=== PATIENT | male | born 1985 | race Caucasian/White ===

== ENCOUNTER 2018-09-13 16:24 | Outpatient (REF) | payer MEDICAID, SELFPAY ==
[2018-09-13 21:45] LABS: Abs Immature Grans 0.03 k/cumm (0.0-0.09); Absolute Basophil Count 0.06 k/cumm (0.0-0.2); Basophils % 0.4; Eosinophils % 0.9; HCT 46.1 % (40.0-50.0); HGB 15.8 g/dL (13.5-17.5); Immature Grans % 0.2; Mean Corp. HGB Concentration 34.3 g/dL (32.0-36.0); Mean Corpuscular Hemoglobin 31.5 pg (27.0-33.0); Mean Corpuscular Volume 91.8 fL (80-95); Mean Platelet Volume 9.8 fL (8.0-11.0); Monocytes % 9.4; Neutrophils % 74.1; Platelet Count 267 x1000/uL (130-400); RBC 5.02 m/cumm (4.50-6.00); RBC Distribution Width 12.4 % (11.8-14.1)
[2018-09-13 21:56] LABS: Absolute Eosinophil Count 0.13 k/cumm (0.0-0.7); Absolute Monocyte Count 1.32 k/cumm (0.11-0.7); Absolute Neutrophil Count 10.37 k/cumm (1.2-6.7)
[2018-09-13 22:20] LABS: ALT 17 U/L (12-78); AST 18 U/L (15-37); Alkaline Phosphatase 62 U/L (46-116); Anion Gap 7.7 mmol/L (3-11); BUN 11 mg/dL (7-18); Bilirubin, Total 0.4 mg/dL (0.2-1.0); CO2 31.3 mmol/L (21.0-32.0); CREATININE 0.94 mg/dL (0.70-1.30); Calcium 9.5 mg/dL (8.5-10.1); Chloride 102 mmol/L (98-107); Glucose 95 mg/dL (70-100); Potassium 3.7 mmol/L (3.5-5.1); Sodium 141 mmol/L (136-145); Total Protein 7.5 g/dL (6.4-8.2); Vitamin B12 473 pg/mL (193-986)
== END 2018-09-13 16:44 ==
LOC: NCHCN 16:24
PROVIDERS: PCP Nurse Practitioner Family; Visit Provider Nurse Practitioner Family
DX: B19.20 Unspecified viral hepatitis C without hepatic coma (principal); F10.10 Alcohol abuse, uncomplicated; F39 Unspecified mood [affective] disorder; F41.1 Generalized anxiety disorder; G31.84 Mild cognitive impairment of uncertain or unknown etiology; F32.9 Major depressive disorder, single episode, unspecified
CPT/HCPCS: 80053; 86803; 82607; 85025

== ENCOUNTER 2020-04-18 15:48 | Outpatient (REF) | payer MEDICAID, SELFPAY ==
[2020-04-18 22:55] LABS: Abs Immature Grans 0.05 10^3/uL (0.0-0.06); Absolute Eosinophil Count 0.15 10^3/uL (0.0-0.7); Absolute Lymphocyte Count 2.47 10^3/uL (1.2-3.4); Basophils % 0.6; Eosinophils % 1.2; HCT 46.6 % (40.0-50.0); HGB 16.2 g/dL (13.5-17.5); Immature Grans % 0.4; Lymphocytes % 19.7; MCH 32.4 pg (27.0-33.0); MCHC 34.8 % (32.0-36.0); MCV 93.2 fL (80-95); MPV 9.5 fL (8.0-11.0); Neutrophils % 70.1; Nucleated RBC 0 %; Platelet Count 351 10^3/uL (130-400); RDW 11.8 % (11.8-14.1); RDW-SD 40.4 fL; WBC 12.55 10^3/uL (4.4-10.8)
[2020-04-18 22:56] LABS: Absolute Basophil Count 0.08 10^3/uL (0.0-0.2)
[2020-04-18 23:19] LABS: VALPROIC ACID < 3 ug/mL (50-100)
[2020-04-18 23:26] LABS: ALT 15 U/L (16-63); AST 20 U/L (15-37); Albumin 4.7 g/dL (3.4-5.0); Alkaline Phosphatase 55 U/L (46-116); BUN 10 mg/dL (7-18); Bilirubin, Total 0.6 mg/dL (0.2-1.0); CREATININE 0.87 mg/dL (0.70-1.30); Calcium 9.6 mg/dL (8.5-10.1); Calculated LDL 76 mg/dL (<100); Chloride 103 mmol/L (98-107); Cholesterol 177 mg/dL (<200); Glucose 93 mg/dL (74-106); HDL Cholesterol 94 mg/dL (40-60); Potassium 4.4 mmol/L (3.5-5.1); Sodium 141 mmol/L (136-145); TSH 0.84 uIU/mL (0.36-3.74); Total Protein 8.7 g/dL (6.4-8.2); Triglyceride 38 mg/dL (<150)
== END 2020-04-18 16:08 ==
LOC: NCHCN 15:48
PROVIDERS: PCP Registered Nurse; Visit Provider Nurse Practitioner Psychiatric/Mental Health
DX: F31.81 Bipolar II disorder (principal); Z51.81 Encounter for therapeutic drug level monitoring; Z79.899 Other long term (current) drug therapy; F42.2 Mixed obsessional thoughts and acts
CPT/HCPCS: 80053; 80061; 80164; 84443; 85025

== ENCOUNTER 2021-07-22 22:15 | Outpatient (REF) | payer MEDICAID, SELFPAY ==
[2021-07-22 21:57] LABS: Abs Immature Grans 0.04 10^3/uL (0.0-0.06); Absolute Basophil Count 0.07 10^3/uL (0.0-0.2); Absolute Eosinophil Count 0.17 10^3/uL (0.0-0.7); Absolute Neutrophil Count 9.79 10^3/uL (1.2-6.7); Basophils % 0.5; Eosinophils % 1.2; HCT 48.6 % (40.0-50.0); HGB 16.2 g/dL (13.5-17.5); Immature Grans % 0.3; Lymphocytes % 19.4; MCH 31.6 pg (27.0-33.0); MCHC 33.3 % (32.0-36.0); MCV 94.7 fL (80-95); MPV 9.9 fL (8.0-11.0); Monocytes % 8.1; Neutrophils % 70.5; Nucleated RBC 0 %; Platelet Count 360 10^3/uL (130-400); RBC 5.13 10^6/uL (4.36-5.78); RDW 12.5 % (11.8-14.1); RDW-SD 43.9 fL; WBC 13.89 10^3/uL (4.4-10.8)
[2021-07-22 22:00] LABS: Absolute Lymphocyte Count 2.69 10^3/uL (1.2-3.4); Absolute Monocyte Count 1.13 10^3/uL (0.1-0.8)
[2021-07-22 22:20] LABS: ALT 17 U/L (16-63); AST 18 U/L (15-37); Alkaline Phosphatase 57 U/L (46-116); Anion Gap 9.5 mmol/L (3-11); BUN 6 mg/dL (7-18); Bilirubin, Total 0.4 mg/dL (0.2-1.0); CO2 28.5 mmol/L (21.0-32.0); CREATININE 0.9 mg/dL (0.70-1.30); Chloride 104 mmol/L (98-107); Glucose 139 mg/dL (74-106); Potassium 4.6 mmol/L (3.5-5.1); Sodium 142 mmol/L (136-145); Total Protein 7.8 g/dL (6.4-8.2)
[2021-07-22 22:23] LABS: VALPROIC ACID 69.4 ug/mL
[2021-07-23 18:42] LABS: Hemoglobin A1C 4.9 % (<5.7)
== END 2021-07-22 22:16 | disposition home or self-care (01) ==
LOC: NCHCN 22:15
PROVIDERS: PCP Registered Nurse; Visit Provider Registered Nurse
DX: R73.9 Hyperglycemia, unspecified (principal); F31.81 Bipolar II disorder; F39 Unspecified mood [affective] disorder
CPT/HCPCS: 80053; 80164; 83036; 85025

== ENCOUNTER 2021-12-16 16:13 | Outpatient (REF) | payer MEDICAID, SELFPAY ==
[2021-12-16 21:43] LABS: Abs Immature Grans 0.06 10^3/uL (0.0-0.06); Absolute Basophil Count 0.09 10^3/uL (0.0-0.2); Absolute Eosinophil Count 0.06 10^3/uL (0.0-0.7); Absolute Lymphocyte Count 1.55 10^3/uL (1.2-3.4); Absolute Monocyte Count 1.25 10^3/uL (0.1-0.8); Basophils % 0.7; Eosinophils % 0.5; HCT 44.4 % (40.0-50.0); HGB 15.4 g/dL (13.5-17.5); Immature Grans % 0.5; Lymphocytes % 12.1; MCH 32.9 pg (27.0-33.0); MCHC 34.7 % (32.0-36.0); MCV 95 fL (80-95); MPV 9.4 fL (8.0-11.0); Monocytes % 9.8; Neutrophils % 76.4; Platelet Count 324 10^3/uL (130-400); RBC 4.68 10^6/uL (4.36-5.78); RDW-SD 45.7 fL
[2021-12-16 21:44] LABS: Absolute Neutrophil Count 9.78 10^3/uL (1.2-6.7)
[2021-12-16 21:51] LABS: ESR 5 mm/hr (0-15)
[2021-12-16 22:23] LABS: ALT 43 U/L (16-63); AST 34 U/L (15-37); Albumin 4.2 g/dL (3.4-5.0); Alkaline Phosphatase 53 U/L (46-116); Anion Gap 11.4 mmol/L (3-11); BUN 8 mg/dL (7-18); Bilirubin, Total 0.6 mg/dL (0.2-1.0); C-Reactive Protein 0.13 mg/dL (0.0-0.3); CO2 25.6 mmol/L (21.0-32.0); CREATININE 0.7 mg/dL (0.70-1.30); Calcium 9.3 mg/dL (8.5-10.1); Chloride 102 mmol/L (98-107); Glucose 79 mg/dL (74-106); Potassium 4.5 mmol/L (3.5-5.1); Sodium 139 mmol/L (136-145); TSH (W/Ref FT4) 1.28 uIU/mL (0.36-3.74); Total Protein 7.6 g/dL (6.4-8.2)
[2021-12-16 23:03] LABS: Calculated LDL 54 mg/dL (<100); Cholesterol 194 mg/dL (<200); HDL Cholesterol 135 mg/dL (40-60); Triglyceride 28 mg/dL (<150)
[2021-12-17 05:32] LABS: Vitamin D 25 Total 10.6 ng/mL (30-100)
[2021-12-18 09:45] LABS: Hepatitis C Ab w Rflx HCV PCR Reactive (Negative)
[2021-12-18 10:00] LABS: HIV-1/2 Ag & Ab Screen Negative (Negative)
[2021-12-18 14:39] LABS: HCV RNA Qualitative Undetected (Undetected)
[2021-12-21 13:45] LABS: IgA 126 mg/dL (85-499); Interpretation (See Note); Tissue Transglutaminase IgA <1.2 U/mL (<4.0)
== END 2021-12-16 16:14 | disposition home or self-care (01) ==
LOC: NCHCN 16:13
PROVIDERS: PCP Registered Nurse; Visit Provider Registered Nurse
DX: R63.4 Abnormal weight loss (principal); R74.8 Abnormal levels of other serum enzymes; E55.9 Vitamin D deficiency, unspecified; F10.10 Alcohol abuse, uncomplicated
CPT/HCPCS: 80053; 80061; 82306; 82784; 83516; 85652; 86803; 87389; 87522; 83036; 84443; 85025; 86140

== ENCOUNTER 2022-03-29 16:16 | Outpatient (REF) | payer MEDICAID, SELFPAY ==
[2022-03-29 21:32] LABS: Vitamin D 25 Total 71.8 ng/mL (30-100)
== END 2022-03-29 16:17 | disposition home or self-care (01) ==
LOC: NCHCN 16:16
PROVIDERS: PCP Registered Nurse; Visit Provider Registered Nurse
DX: E55.9 Vitamin D deficiency, unspecified (principal)
CPT/HCPCS: 82306

== ENCOUNTER 2023-11-28 14:52 | Outpatient (REF) | payer MEDICAID, SELFPAY ==
[2023-11-28 15:58] LABS: Abs Immature Grans 0.01 10^3/uL (0.0-0.06); Absolute Basophil Count 0.07 10^3/uL (0.0-0.2); Absolute Lymphocyte Count 2.24 10^3/uL (1.2-3.4); Absolute Monocyte Count 0.96 10^3/uL (0.1-0.8); Absolute Neutrophil Count 3.64 10^3/uL (1.2-6.7); Eosinophils % 1.4 %; HGB 15.7 g/dL (13.5-17.5); Immature Grans % 0.1 %; Lymphocytes % 31.9 %; MCHC 33.4 % (32.0-36.0); MCV 99 fL (80-95); MPV 9.3 fL (8.0-11.0); Monocytes % 13.7 %; Neutrophils % 51.9 %; Platelet Count 335 10^3/uL (130-400); RBC 4.76 10^6/uL (4.36-5.78); RDW 12.5 % (11.8-14.1); RDW-SD 45.2 fL; WBC 7.02 10^3/uL (4.4-10.8)
[2023-11-28 16:37] LABS: ALT 32 U/L (16-63); AST 39 U/L (15-37); Albumin 4.4 g/dL (3.4-5.0); Alkaline Phosphatase 62 U/L (46-116); Anion Gap 23.8 mmol/L (3-11); BUN 8 mg/dL (7-18); Bilirubin, Total 0.62 mg/dL (0.2-1.0); CO2 16.2 mmol/L (21.0-32.0); CREATININE 0.9 mg/dL (0.70-1.30); Calcium 9.5 mg/dL (8.5-10.1); Chloride 93 mmol/L (98-107); Estimated GFR 113.51 (mL/min/1.73m2); FREE T4 0.89 ng/dL (0.76-1.46); Glucose 70 mg/dL (74-106); Potassium 4.7 mmol/L (3.5-5.1); Sodium 133 mmol/L (136-145); TSH 1.16 uIU/Ml (0.36-3.74)
== END 2023-11-28 14:53 | disposition home or self-care (01) ==
LOC: NCHCN 14:52
PROVIDERS: PCP Registered Nurse; Visit Provider Family Medicine
DX: R63.4 Abnormal weight loss (principal)
CPT/HCPCS: 80053; 84439; 84443; 85025